=== PATIENT | female | born 1985 | race Hispanic/Latino ===

== ENCOUNTER 2018-04-03 08:59 | Emergency (ER) | payer SELFPAY ==
[2018-04-03] MEDS ORDERED: Lidocaine 1% PF 5 ML VIAL ONE (10:39)
[2018-04-03] MEDS ORDERED: Azithromycin 250 MG TAB ONE (10:39)
[2018-04-03] MEDS ORDERED: cefTRIAXone\\ROCEPHIN 250 MG VIAL ONE (10:39)
[2018-04-03] MEDS ORDERED: Ibuprofen 200 MG TAB ONE (10:39)
[2018-04-03 10:48] LABS: Bilirubin Negative (Negative); Blood, Urine Negative (Negative); Glucose, Urine (Dipstick) Negative (Negative); Leukocyte Negative (Negative); Nitrite Positive (Negative); Protein, Urine (Dipstick) Negative (Neg-Trace); Specific Gravity, Urine 1.025 (1.005-1.030); Urobilinogen 0.2 mg/dL (0.2-1.0)
[2018-04-03 10:52] LABS: Clarity CLEAR (Clear); Pregnancy Test - Urine (BHCG) Negative (Negative); Pregu Control Background? CLEAR/WHITE (CLR/WHITE); Pregu Control Bar Appear? YES (CONTROL BAR); Specific Gravity 1.025 (1.002-1.036)
[2018-04-03 10:55] LABS: Bacteria/HPF 4+ HPF (None Seen); Hyaline Casts/LPF NONE SEEN LPF (0-3 Hyaline); RBC/HPF None Seen HPF (0-3)
[2018-04-04 01:25] LABS: Chlamydia by PCR Not Detected (NotDetected); GC by PCR DETECTED (NotDetected)
== END 2018-04-03 12:09 | disposition home or self-care (01) ==
LOC: ERS 08:59
DX: N72 Inflammatory disease of cervix uteri (principal); N39.0 Urinary tract infection, site not specified
CPT/HCPCS: 81003; 81015; 81025; 87480; 87491; 87510; 87591; 87660; 96372; J0696; J2001